=== PATIENT | male | born 1980 | race Caucasian/White ===

== ENCOUNTER 2016-10-18 19:39 | Emergency (ER) | payer OTHER ==
--- NOTE | ~2016-10-18 | ER ---
PATIENT'S NAME: NIKOLE MAN [facility] AGE: 36 Y [address] ROOM: [place] [address] LOCATION: [facility] ADMIT DATE: 10/18/2016 ER/Outpatient Report DISCHARGE DATE: 10/18/2016 FAMILY PHYSICIAN: Guanako Watts MD ATTENDING PHYSICIAN: Robert Ya Time of Arrival: 1941 hours. Time of Evaluation: 1952 hours. CHIEF COMPLAINT: Ankle injury. HISTORY OF PRESENT ILLNESS: The patient states that he twisted his right ankle today at work. He has pain in the posterolateral aspect of the ankle. Injury occurred approximately 10 hours prior to arrival. ALLERGIES: PENICILLIN. CURRENT MEDICATIONS: Effexor. PAST MEDICAL HISTORY: PTSD and depression. PAST SURGICAL HISTORY: [place] teeth. SOCIAL HISTORY: He denies use of tobacco, drugs, or alcohol. REVIEW OF SYSTEMS: All negative other than those mentioned in the HPI. PHYSICAL EXAMINATION: VITAL SIGNS: He weighs 102.9 kg, blood pressure is 137/80, pulse of 93, respirations 16, temperature of 97.4 tympanic, O2 saturation is 95% on room air. GENERAL: He is awake, alert, and oriented x4. SKIN: [place], warm, and dry. RESPIRATIONS: Even and nonlabored. EXTREMITIES: Right pedal pulses are positive. He does have some swelling of the right lateral ankle area. He has range of motion with increased discomfort with inversion of the foot. PATIENT'S NAME: NIKOLE MAN [facility] AGE: 36 Y [address] ROOM: [place] [address] LOCATION: [facility] ADMIT DATE: 10/18/2016 ER/Outpatient Report DISCHARGE DATE: 10/18/2016 FAMILY PHYSICIAN: Guanako Watts MD ATTENDING PHYSICIAN: Robert Ya LABORATORY DATA AND X-RAYS: X-ray was completed. No bony abnormality is seen. IMPRESSION: Sprained right ankle. PLAN: Jake wrap was applied for support. Rest, ice, elevate. Follow up with his primary provider in the next 2 to 3 days if symptoms persist or worsen. He verbalized understanding. AB ALMARAZ APRN FOR ROBERT YA DO DJ/modl /[id number] d: 10/19/16 0108 t: 10/20/16 0549, OUTPATIENT REPORT
== END 2016-10-18 20:23 | disposition disaster alternative care site (69) ==
LOC: GACC 19:39
DX: S93.401A Sprain of unspecified ligament of right ankle, initial encounter (principal); F32.9 Major depressive disorder, single episode, unspecified; F43.10 Post-traumatic stress disorder, unspecified; Z98.818 Other dental procedure status; Z88.0 Allergy status to penicillin; Z79.899 Other long term (current) drug therapy; X50.1XXA Overexertion from prolonged static or awkward postures, initial encounter